=== PATIENT | female | born 1975 | race Caucasian/White ===

== ENCOUNTER 2019-03-09 11:39 | Inpatient (IN) ==
[2019-03-09] MEDS ORDERED: Ringers Solution, Lactated 1,000 ML IVC SCH ×2 (12:15→21:15)
[2019-03-09] MEDS ORDERED: Lidocaine -MPF 2% 2 ML VIAL ONE (12:22)
[2019-03-09] MEDS ORDERED: *HR* Midazolam HCl 2 MG/2 ML VIAL ONE (12:22)
[2019-03-09] MEDS ORDERED: *HR* Propofol 200 MG/20 ML VIAL IVP ONE ×2 (12:22→16:11)
[2019-03-09] MEDS ORDERED: *HR* FentaNYL (PF) 100 MCG/2 ML VIAL ONE ×3 (12:22→16:10)
[2019-03-09] MEDS ORDERED: Ondansetron 4 MG/2 ML VIAL ONE (12:26)
[2019-03-09] MEDS ORDERED: Ketorolac 30 MG/ML VIAL IVP ONE (12:29)
[2019-03-09] MEDS ORDERED: *HR* OxyCODONE Immed Rel 5 MG TABLET PO PRN (12:29)
[2019-03-09] MEDS ORDERED: Ondansetron 4 MG/2 ML VIAL IVP ONE (12:29)
[2019-03-09] MEDS ORDERED: Bupivacaine-MPF 0.25% 10 ML VIAL ONE (12:47)
[2019-03-09] MEDS ORDERED: Dexamethasone 4 MG/ML VIAL ONE ×2 (13:08→15:09)
[2019-03-09] MEDS ORDERED: Silver Nitrate Applicator 1 STICK..EA. TP ONE ×2 (13:14→13:43)
[2019-03-09] MEDS ORDERED: Ketorolac 30 MG/ML VIAL ONE (13:54)
[2019-03-09] MEDS ORDERED: *HR* Succinylcholine 200 MG/10 ML VIAL IVP ONE (14:17)
[2019-03-09] MEDS ORDERED: *HR* Vasopressin 20 UNIT/ML VIAL ONE (14:18)
[2019-03-09] MEDS ORDERED: ceFAZolin 2,000 MG in Water for inj. (sterile) 20 ML IVP ONE (14:31)
[2019-03-09] MEDS ORDERED: EPHEDrine 50 MG/ML VIAL ONE (14:59)
[2019-03-09] MEDS ORDERED: Acetaminophen IV 1,000 MG/100 ML INFUS..BTL ONE (15:11)
[2019-03-09] MEDS ORDERED: *HR* Rocuronium Bromide 50 MG/5 ML VIAL ONE ×2 (16:05→17:58)
[2019-03-09] MEDS ORDERED: *HR* HYDROMORPHONE 2 MG/ML VIAL ONE (18:29)
[2019-03-09] MEDS ORDERED: Albumin Human 5% 25.0 GM/500 ML VIAL ONE (18:34)
[2019-03-09] MEDS ORDERED: Neostigmine Methylsulfate 3 MG/3 ML SYRINGE ONE (19:07)
[2019-03-09 19:27] LABS: Basophils % 0.2 %; Hematocrit 32.6 % (35.3-44.9); Hemoglobin 11.4 g/dL (11.5-15.4); Immature Granulocytes % 0.2 % (0-4); Lymphocytes # 0.6 K/mcL (0.6-4.6); Lymphocytes % 4.7 %; Mean Corpuscular Hemoglobin 30.9 pg (28.0-33.3); Mean Corpuscular Volume 88.3 fL (83.0-100.0); Mean Platelet Volume 9.7 fL (9.4-12.4); Monocytes # 0.2 K/mcL (0.0-1.3); Monocytes % 1.8 %; Neutrophils # 11.2 K/mcL (1.6-8.9); Platelet Count 231 K/mcL (140-400); Red Blood Count 3.69 M/mcL (3.82-4.97); Segmented Neutrophils % 93.1 %
[2019-03-09 19:36] LABS: INR 1.1; Prothrombin Time 12.5 Seconds (9.4-12.1)
[2019-03-09 19:39] LABS: Activated Partial Thrombo Time 25.6 Seconds (26.0-36.0)
[2019-03-09] MEDS ORDERED: *HR* HYDROmorphone (PF) 1 MG/ML SYRINGE IVP PRN (19:43)
[2019-03-09] MEDS ORDERED: *HR* Labetalol 20 MG/4 ML SYRINGE IVP PRN (19:43)
[2019-03-09] MEDS ORDERED: *HR* Promethazine 25 MG/ML VIAL IVP PRN (19:48)
[2019-03-09] MEDS ORDERED: Scopolamine Patch 1.5 MG PATCH.TD72 TD ONE (19:49)
[2019-03-09] MEDS ORDERED: *HR* OxyCODONE/APAP 5/325 TABLET PO PRN (21:01)
[2019-03-09] MEDS ORDERED: Naloxone 0.4 MG/ML INJ IVP PRN ×3 (21:01→21:08)
[2019-03-09] MEDS ORDERED: Ibuprofen 600 MG TABLET PO PRN (21:08)
[2019-03-09] MEDS ORDERED: Metoclopramide 10 MG/2 ML VIAL IVP PRN (21:08)
[2019-03-09] MEDS ORDERED: Rho Immune Globulin 1,500 UNIT SYRINGE IM ONE (21:08)
[2019-03-09] MEDS ORDERED: Ondansetron 4 MG/2 ML VIAL IVP PRN (21:08)
[2019-03-09] MEDS ORDERED: Sennosides 8.6 MG TABLET PO PRN (21:08)
[2019-03-09] MEDS ORDERED: Simethicone 80 MG TAB.CHEW PO PRN (21:08)
[2019-03-09] MEDS: Ringers Solution, Lactated 1,000 ML IVC SCH (21:57)
[2019-03-09] MEDS: Ketorolac 30 MG/ML VIAL IVP PRN (22:47)
[2019-03-10] MEDS: *HR* HYDROmorphone (PF) 1 MG/ML SYRINGE IVP PRN ×2 (00:11→05:44)
[2019-03-10] MEDS: *HR* OxyCODONE/APAP 5/325 TABLET PO PRN ×5 (03:20→21:38)
[2019-03-10 05:42] LABS: Basophils % 0.1 %; Hemoglobin 10.6 g/dL (11.5-15.4); Immature Granulocytes % 0.3 % (0-4); Lymphocytes # 0.9 K/mcL (0.6-4.6); Lymphocytes % 7.4 %; Mean Corpuscular HGB Conc 34.2 g/dL (31.6-35.5); Mean Corpuscular Hemoglobin 30.5 pg (28.0-33.3); Mean Corpuscular Volume 89.3 fL (83.0-100.0); Mean Platelet Volume 9.8 fL (9.4-12.4); Monocytes # 0.9 K/mcL (0.0-1.3); Monocytes % 8.1 %; Neutrophils # 9.6 K/mcL (1.6-8.9); Platelet Count 240 K/mcL (140-400); Red Blood Count 3.47 M/mcL (3.82-4.97); Red Cell Distribution Width 12.1 % (11.5-14.5); Segmented Neutrophils % 84.1 %; White Blood Count 11.5 K/mcL (4.3-11.1)
[2019-03-10] MEDS: Ringers Solution, Lactated 1,000 ML IVC SCH ×3 (05:43→21:39)
[2019-03-10] MEDS: Ketorolac 30 MG/ML VIAL IVP PRN ×2 (09:48→19:39)
[2019-03-11] MEDS ORDERED: Ondansetron 4 MG/2 ML VIAL IVP PRN (02:08)
[2019-03-11] MEDS: *HR* OxyCODONE/APAP 5/325 TABLET PO PRN ×6 (02:25→23:53)
[2019-03-11] MEDS: Ketorolac 30 MG/ML VIAL IVP PRN ×2 (05:21→15:31)
[2019-03-11 07:23] LABS: Basophils % 0.1 %; Eosinophils % 0.1 %; Hematocrit 27.6 % (35.3-44.9); Hemoglobin 9.7 g/dL (11.5-15.4); Immature Granulocytes % 0.4 % (0-4); Lymphocytes # 1.8 K/mcL (0.6-4.6); Lymphocytes % 23.9 %; Mean Corpuscular HGB Conc 35.1 g/dL (31.6-35.5); Mean Corpuscular Hemoglobin 31.4 pg (28.0-33.3); Mean Corpuscular Volume 89.3 fL (83.0-100.0); Mean Platelet Volume 9.8 fL (9.4-12.4); Monocytes # 0.5 K/mcL (0.0-1.3); Neutrophils # 5.3 K/mcL (1.6-8.9); Platelet Count 178 K/mcL (140-400); Red Blood Count 3.09 M/mcL (3.82-4.97); Red Cell Distribution Width 12.4 % (11.5-14.5); Segmented Neutrophils % 69.5 %; White Blood Count 7.6 K/mcL (4.3-11.1)
[2019-03-11] MEDS ORDERED: Metoclopramide 10 MG/2 ML VIAL IVP PRN (11:16)
[2019-03-11] MEDS ORDERED: Ringers Solution, Lactated 1,000 ML IVC SCH (11:30)
[2019-03-11 18:42] LABS: Basophils % 0.3 %; Eosinophils # 0.1 K/mcL (0.0-0.6); Hematocrit 27.6 % (35.3-44.9); Hemoglobin 9.5 g/dL (11.5-15.4); Immature Granulocytes % 0.5 % (0-4); Lymphocytes # 1.8 K/mcL (0.6-4.6); Lymphocytes % 23.2 %; Mean Corpuscular HGB Conc 34.4 g/dL (31.6-35.5); Mean Corpuscular Hemoglobin 31.3 pg (28.0-33.3); Mean Corpuscular Volume 90.8 fL (83.0-100.0); Mean Platelet Volume 10.1 fL (9.4-12.4); Monocytes # 0.5 K/mcL (0.0-1.3); Monocytes % 6.7 %; Neutrophils # 5.4 K/mcL (1.6-8.9); Platelet Count 198 K/mcL (140-400); Red Blood Count 3.04 M/mcL (3.82-4.97); Red Cell Distribution Width 12.4 % (11.5-14.5); Segmented Neutrophils % 68.3 %; White Blood Count 7.9 K/mcL (4.3-11.1)
[2019-03-12] MEDS: Ketorolac 30 MG/ML VIAL IVP PRN (03:06)
[2019-03-12] MEDS: *HR* OxyCODONE/APAP 5/325 TABLET PO PRN ×2 (05:07→09:23)
[2019-03-12 08:17] VITALS: BP 100/64
== END 2019-03-12 11:51 | disposition home or self-care (01) | DRG 742 ==
LOC: SAMDAY 11:39 → 1NENUOBS 11:39
PROVIDERS: ADMIT Obstetrics & Gynecology; ATTEND Obstetrics & Gynecology